=== PATIENT | male | born 1950 | race Caucasian/White ===

== ENCOUNTER 2020-09-03 19:39 | Inpatient (IN) | payer MEDICARE ==
[~2020-09-03] VITALS: Ht 177.8 cm; Wt 82.6 kg
[2020-09-03] MEDS ORDERED: ONDANSETRON 4 MG/2 ML VIAL ONE (19:58)
[2020-09-03] MEDS ORDERED: ACETAMINOPHEN ES 500 MG TABLET ONE (19:58)
[2020-09-03] MEDS ORDERED: IV NORMAL SALINE 1000 ML BAG IV ONE ×2 (20:00→21:30)
[2020-09-03] MEDS ORDERED: CEFTRIAXONE 1 G in IV DEXTROSE 5% 50 ML IV ONE (20:00)
[2020-09-03] MEDS ORDERED: ACETAMINOPHEN ES 500 MG TABLET PO ONE (20:00)
[2020-09-03] MEDS ORDERED: ONDANSETRON 4 MG/2 ML VIAL IV ONE (20:00)
[2020-09-03] MEDS ORDERED: [UNRECOGNIZED DRUG - REMARK] (20:03)
--- NOTE | 2020-09-03 20:12 | NUR ---
ER aware of patient BP @ 72/41
[2020-09-03 20:16] LABS: BASOPHILS % (AUTO) 0.1 % (0.0-2.0); MEAN CORPUSCULAR VOLUME 93.7 fL (73.0-96.2); MONOCYTES # (AUTO) 0.1 K/uL (2.0-10.0); NEUTROPHILS # (AUTO) 5.4 K/uL (1.8-8.9); RED BLOOD CELL COUNT(AUTO) 4.53 MIL/uL (4.06-5.63)
[2020-09-03 20:20] LABS: LYMPHOCYTES % (AUTO) 4.1 % (20.5-51.5); MEAN CORPUSCULAR HGB CONC 34 g/dL (32.5-36.3)
[2020-09-03 20:21] LABS: HEMATOCRIT 42.4 % (36.7-47.1); HEMOGLOBIN 14.3 g/dL (12.5-16.3); PLATELET COUNT (AUTO) 96 K/uL (152-348); WHITE BLOOD COUNT (AUTO) 5.8 K/uL (3.6-10.2)
[2020-09-03] MEDS ORDERED: CEFTRIAXONE 1 G VIAL ONE (20:21)
[2020-09-03 20:22] LABS: EOSINOPHILS % (AUTO) 0.1 % (0.0-7.0); LYMPHOCYTES # (AUTO) 0.3 K/uL (20.0-40.0); MEAN CORPUSCULAR HEMOGLOBIN 31.6 uug (23.8-33.4); MONOCYTES % (AUTO) 1.6 % (0.0-11.0); NEUTROPHILS % (AUTO) 93.6 % (38.5-71.5)
[2020-09-03 20:47] LABS: BILIRUBIN,DIRECT 5.2 mg/dL (0.0-0.2); BILIRUBIN,TOTAL 6.3 mg/dL (0.2-1.0); CREATININE 2.6 mg/dL (0.6-1.3)
[2020-09-03 20:48] LABS: TOTAL PROTEIN, SERUM 6.6 g/dL (6.4-8.2)
[2020-09-03 20:49] LABS: POTASSIUM 2.5 mmol/L (3.5-5.1)
--- NOTE | 2020-09-03 20:49 | NUR ---
Patient in bed, no acute distress noted. VSS
[2020-09-03] MEDS ORDERED: ENOXAPARIN SODIUM 80 MG/0.8 ML DISP.SYRIN SQ ONE ×2 (21:30→21:38)
--- NOTE | 2020-09-03 21:46 | NUR ---
SOLO QIU at bedside for patient update.
[2020-09-03] MEDS ORDERED: POTASSIUM CHLORIDE 20 MEQ TAB.PRT.SR PO ONE ×2 (22:00→23:30)
[2020-09-03] MEDS ORDERED: POTASSIUM CHLORIDE 20 MEQ TAB.PRT.SR ONE ×2 (22:01→23:54)
--- NOTE | 2020-09-03 22:23 | NUR ---
Panel call placed to [employer], Dr Castellanos on phone with ER MD Jensen.
--- NOTE | 2020-09-03 22:26 | NUR ---
Pt. admitted to CCU , under care of Dr. Castellanos Belongs List completed
--- NOTE | 2020-09-03 22:37 | NUR ---
Patient placed on simple mask @ 10lpm per ER instruction
[2020-09-03 22:50] LABS: BAND % (MANUAL) 22 % (0-10); LYMPHOCYTES % (MANUAL) 7 % (20-40); MONOCYTES % (MANUAL) 7 % (2-10); NEUTROPHILS % (MANUAL) 64 % (42-75)
--- NOTE | 2020-09-03 23:12 | NUR ---
Awaiting call back from Dr Castellanos.
--- NOTE | 2020-09-03 23:15 | NUR ---
SOLO QIU on phone with Emanuel
[2020-09-03] MEDS ORDERED: NOREPINEPHRINE BITARTRATE 4 MG/4 ML VIAL IV ONE (23:25)
[2020-09-03] MEDS ORDERED: ACETAMINOPHEN 325 MG TABLET PO PRN (23:30)
[2020-09-03] MEDS ORDERED: CEFTRIAXONE 1 G in IV DEXTROSE 5% 50 ML IV SCH (23:30)
[2020-09-03] MEDS ORDERED: NOREPINEPHRINE BITARTRATE 8 MG in IV NORMAL SALINE 242 ML IV PRN (23:30)
[2020-09-03] MEDS ORDERED: Z GUARD REMEDY PASTE 57 GM TUBE TOP PRN (23:30)
[2020-09-03] MEDS ORDERED: IV LACTATED RINGERS SOLUTION 1,000 ML IV ONE (23:30)
[2020-09-03] MEDS ORDERED: ONDANSETRON 4 MG/2 ML VIAL IV PRN (23:30)
[2020-09-03] MEDS ORDERED: HYDROCODONE/APAP 5-325MG TABLET PO PRN (23:30)
[2020-09-03] MEDS ORDERED: MAGNESIUM HYDROXIDE 30 ML LIQUID UDC PO PRN (23:30)
[2020-09-03] MEDS ORDERED: CEFTRIAXONE /D5W 50ML IVPB **ER PYXIS IV ONE (23:54)
--- NOTE | 2020-09-04 00:11 | NUR ---
Patient in bed, no acute distress noted. Resting comfortably at this time.
--- NOTE | 2020-09-04 00:17 | NUR ---
Rate change on Levo to 0.3mcg/kg/min per ER MD instruction. Patient BP is 84/53 at this time.
[2020-09-04] MEDS ORDERED: NOREPINEPHRINE BITARTRATE 4 MG/4 ML VIAL IV ONE ×3 (04:37→16:46)
--- NOTE | 2020-09-04 04:47 | NUR ---
Patient in bed, no acute distress noted. VSS
[2020-09-04 06:59] LABS: BASOPHILS % (AUTO) 0.1 % (0.0-2.0); EOSINOPHILS # (AUTO) 0.1 K/uL (0.0-0.7); EOSINOPHILS % (AUTO) 0.2 % (0.0-7.0); HEMATOCRIT 39.4 % (36.7-47.1); HEMOGLOBIN 13.3 g/dL (12.5-16.3); LYMPHOCYTES # (AUTO) 0.5 K/uL (20.0-40.0); LYMPHOCYTES % (AUTO) 1.9 % (20.5-51.5); MEAN CORPUSCULAR HEMOGLOBIN 31.8 uug (23.8-33.4); MEAN CORPUSCULAR HGB CONC 34 g/dL (32.5-36.3); MEAN CORPUSCULAR VOLUME 94.1 fL (73.0-96.2); MONOCYTES # (AUTO) 0.7 K/uL (2.0-10.0); NEUTROPHILS # (AUTO) 24.1 K/uL (1.8-8.9); NEUTROPHILS % (AUTO) 94.8 % (38.5-71.5); PLATELET COUNT (AUTO) 111 K/uL (152-348); RED BLOOD CELL COUNT(AUTO) 4.19 MIL/uL (4.06-5.63); WHITE BLOOD COUNT (AUTO) 25.4 K/uL (3.6-10.2)
--- NOTE | 2020-09-04 07:06 | NUR ---
Report to Kojo LONDON
--- NOTE | 2020-09-04 07:10 | NUR ---
recieved pt in bed, resting, no sign of distress. pt on levophed drip on 0.3mcg/kg/min, bp 106/69.
[2020-09-04 07:17] LABS: THYROID STIMULATING HORMONE 0.881 mIU/mL (0.358-3.740)
[2020-09-04] MEDS: PANTOPRAZOLE SODIUM 40 MG TABLET.DR PO SCH (07:30)
[2020-09-04] MEDS ORDERED: PANTOPRAZOLE SODIUM 40 MG TABLET.DR PO ONE (07:33)
[2020-09-04 07:44] LABS: CREATININE 3.9 mg/dL (0.6-1.3); PHOSPHOROUS 4.9 mg/dL (2.5-4.9); POTASSIUM 3.9 mmol/L (3.5-5.1)
[2020-09-04] MEDS ORDERED: PIPERACILLIN SODIUM/TAZOBACTAM 3.375 G in IV DEXTROSE 5% 50 ML IV ONE (07:45)
[2020-09-04] MEDS ORDERED: VANCOMYCIN IV 1,000 MG in IV DEXTROSE 5% 250 ML IV ONE (07:45)
[2020-09-04] MEDS ORDERED: VANCOMYCIN IV 200 ML ONE (07:49)
[2020-09-04] MEDS ORDERED: PIPERACILLIN/TAZOBACTAM/D5W 50 ML IV ONE (07:49)
--- NOTE | 2020-09-04 08:40 | NUR ---
CALLED TARUN INTERIANO TO INFORM HER THAT THE PT IS STILL IN ER.
--- NOTE | 2020-09-04 09:00 | NUR ---
[facility] HAD SOME. PT SAYS THAT HAS NO APETITE.
[2020-09-04] MEDS ORDERED: ENOXAPARIN SODIUM 80 MG/0.8 ML DISP.SYRIN SQ ONE (11:05)
[2020-09-04] MEDS ORDERED: PIPERACILLIN SODIUM/TAZOBACTAM 3.375 G in IV DEXTROSE 5% 50 ML IV SCH (12:00)
--- NOTE | 2020-09-04 12:14 | NUR ---
spoke with both Dr. Disla, GI and Dr Valencia, surgeon. Dr. Disla is arranging for emergent ERCP
--- NOTE | 2020-09-04 12:23 | NUR ---
reno from surgery called and said that Dr. soni scheduled ERCP for 1800. elo lyon notified.
--- NOTE | 2020-09-04 12:32 | NUR ---
pt on the phone talking to juan ramon lu.
[2020-09-04 12:48] LABS: LYMPHOCYTES % (MANUAL) 12 % (20-40); MONOCYTES % (MANUAL) 2 % (2-10); NEUTROPHILS % (MANUAL) 86 % (42-75)
--- NOTE | 2020-09-04 13:34 | NUR ---
RECEIVED REPORT FROM EBCCA RN, PT AWAITING FOR TRANSFER TO SURG. PT POSITIONED FOR COMFORT.
--- NOTE | 2020-09-04 14:10 | NUR ---
ASYA BARRIOS AT BEDSIDE.
[2020-09-04] MEDS: PIPERACILLIN/TAZO 2.25 G in IV DEXTROSE 5% 50 ML IV SCH (16:26)
[2020-09-04] MEDS ORDERED: PIPERACILLIN/TAZOBACTAM/D5W 50 ML ONE (16:26)
[2020-09-04] MEDS ORDERED: IOPAMIDOL 15 ML VIAL IT ONE (17:12)
--- NOTE | 2020-09-04 17:35 | NUR ---
REPEAT EKG DONE, COPY OF CHART/ORIGINAL CONSENT TO OR NURSES. REPORT TO ATUL LONDON. PT TO GO TO 3RD FLOOR AFTER SURG.
[2020-09-04] MEDS ORDERED: IOHEXOL 300MG/ML 100 ML INFUS..BTL IV ONE (18:14)
[2020-09-04] MEDS ORDERED: INDOMETHACIN 50 MG SUPP.RECT RC ONE (18:14)
[2020-09-04] MEDS ORDERED: FENTANYL CITRATE 100 MCG/2 ML AMPUL ONE (18:23)
[2020-09-04] MEDS ORDERED: SEVOFLURANE 250 ML BOTTLE IH ONE (19:20)
[2020-09-04] MEDS ORDERED: EPHEDRINE SULFATE 50 MG/ML AMPUL IM ONE (19:20)
[2020-09-04] MEDS ORDERED: IV NORMAL SALINE 1000 ML BAG IV ONE (19:20)
[2020-09-04] MEDS ORDERED: PROPOFOL 200 MG/20 ML BOTTLE IV ONE (19:20)
[2020-09-04] MEDS ORDERED: LIDOCAINE-MPF 2% 5 ML VIAL IJ ONE (19:20)
[2020-09-04] MEDS ORDERED: SUCCINYLCHOLINE CHLORIDE 200 MG/10 ML VIAL IV ONE (19:20)
[2020-09-04] MEDS ORDERED: ONDANSETRON 4 MG/2 ML VIAL IV ONE (19:20)
[2020-09-04] MEDS ORDERED: METOCLOPRAMIDE HCL 10 MG/2 ML VIAL IV ONE (19:20)
[2020-09-04 21:00] VITALS: BP 117/69
[2020-09-04] MEDS ORDERED: ENOXAPARIN SODIUM 80 MG/0.8 ML DISP.SYRIN SQ SCH (21:00)
--- NOTE | 2020-09-04 21:00 | NUR ---
belongings received only silver ring and pants
--- NOTE | 2020-09-04 21:15 | NUR ---
received report and patient from Radha , patient is awake oriented , able to follow command , on 100 NRB, saturating 97 % , Temp , 98.7, HR 105 , 117 / 69 , 27 . LEVOPHED IS OFF , IV intact . continet , denies pain or vomiting
[2020-09-04 22:00] VITALS: BP 104/69
[2020-09-04] MEDS: IV NS 1000 ML 1,000 ML IV PRN (22:30)
[2020-09-04 23:00] VITALS: BP 108/70
[2020-09-05] VITALS (22 sets, daily range): BP systolic 98–147; BP diastolic 44–89
--- NOTE | 2020-09-05 | NUR ---
received report patient is blood culture is gram (-) rods , reported to physician , patient is on antibiotics of zosyn , vanco given in ER , awake , able to follow command no fever , denies pain and vomiting ,
[2020-09-05] MEDS ORDERED: PIPERACILLIN/TAZOBACTAM/D5W 50 ML ONE (02:10)
[2020-09-05] MEDS: PIPERACILLIN/TAZO 2.25 G in IV DEXTROSE 5% 50 ML IV SCH ×2 (02:14→09:39)
[2020-09-05] MEDS: IV NS 1000 ML 1,000 ML IV PRN ×3 (04:06→23:30)
[2020-09-05 05:50] LABS: EOSINOPHILS # (AUTO) 0.3 K/uL (0.0-0.7); EOSINOPHILS % (AUTO) 1.8 % (0.0-7.0); HEMATOCRIT 36.2 % (36.7-47.1); HEMOGLOBIN 12.4 g/dL (12.5-16.3); LYMPHOCYTES # (AUTO) 0.7 K/uL (20.0-40.0); LYMPHOCYTES % (AUTO) 3.9 % (20.5-51.5); MEAN CORPUSCULAR HEMOGLOBIN 31.7 uug (23.8-33.4); MEAN CORPUSCULAR HGB CONC 34 g/dL (32.5-36.3); MEAN CORPUSCULAR VOLUME 92.6 fL (73.0-96.2); MONOCYTES # (AUTO) 0.4 K/uL (2.0-10.0); MONOCYTES % (AUTO) 2.3 % (0.0-11.0); NEUTROPHILS # (AUTO) 17.3 K/uL (1.8-8.9); PLATELET COUNT (AUTO) 56 K/uL (152-348); RED BLOOD CELL COUNT(AUTO) 3.91 MIL/uL (4.06-5.63); WHITE BLOOD COUNT (AUTO) 18.9 K/uL (3.6-10.2)
[2020-09-05 06:00] LABS: CREATININE 5.9 mg/dL (0.6-1.3); POTASSIUM 4.7 mmol/L (3.5-5.1)
[2020-09-05 06:08] LABS: BILIRUBIN,DIRECT 4.6 mg/dL (0.0-0.2); BILIRUBIN,TOTAL 5.1 mg/dL (0.2-1.0); TOTAL PROTEIN, SERUM 5.4 g/dL (6.4-8.2); VANCOMYCIN,RANDOM 11.5 ug/mL (18.0-26.0)
--- NOTE | 2020-09-05 06:15 | NUR ---
unable to urinate . bladder scan done 267 ml , assisted patient standing to try to urinate , , unable to , called the doctor business analysis professional , mike ta waiting for call back , patient is awake orientd , on 100 nrb % , no levophed started since patient received from recovery , hr 100 . bp 101 / 70 95 % , rr 18 , no fever no vomiting
--- NOTE | 2020-09-05 06:45 | NUR ---
lynn inserted , successfully with 1 attempt , urine draining well , urine culture sent
[2020-09-05] MEDS: PANTOPRAZOLE SODIUM 40 MG TABLET.DR PO SCH (07:00)
[2020-09-05] MEDS ORDERED: AMLO10TA4 PO (07:22)
[2020-09-05] MEDS ORDERED: VANCOMYCIN IV 1,000 MG in IV DEXTROSE 5% 250 ML IV ONE ×2 (08:00→10:00)
[2020-09-05 15:04] LABS: *BILIRUBIN,URIN 2+ (NEGATIVE); *BLOOD, URINE 3+ (NEGATIVE); *CLARITY,URINE TURBID (CLEAR); *COLOR,URINE DARK YELLOW (YELLOW); *KETONES,URINE NEGATIVE (NEGATIVE); LEUKOCYTE ESTERASE ,URINE NEGATIVE (NEGATIVE); NITRITE, URINE NEGATIVE (NEGATIVE); PH,URINE 5.5 (5.0-8.0); UGLUCOSE NEGATIVE (NEGATIVE)
[2020-09-05 15:25] LABS: *CREATININE,URINE 86.4 mg/dL (30-125); *URINE TOTAL PROTEIN RANDOM 255.4 mg/dL (<150/24HR)
[2020-09-05 17:49] LABS: BAND % (MANUAL) 11 % (0-10); LYMPHOCYTES % (MANUAL) 11 % (20-40); NEUTROPHILS % (MANUAL) 76 % (42-75)
[2020-09-05 17:50] LABS: MONOCYTES % (MANUAL) 1 % (2-10); MYELOCYTES % 1 % (0-0)
[2020-09-05] MEDS: MEROPENEM 500 MG in IV NORMAL SALINE 50 ML IV SCH (18:16)
[2020-09-05 18:32] LABS: CREATININE 6.7 mg/dL (0.6-1.3); POTASSIUM 4.1 mmol/L (3.5-5.1)
--- NOTE | 2020-09-05 19:17 | NUR ---
1300pm: Dr Castellanos came to CCU and was notified (face to face) re: please contact patient 's spouse regarding medical plan of care 1630pm: Frequent calls received from patient's spouse. Updated accordingly. 1800pm: NPO maintained. Comfort and safety measures done. Patient denies any pains throughout the shift.
--- NOTE | 2020-09-05 20:00 | NUR ---
RECEIVED PT ALERT & ORIENTED X3, FOLLOWS TO COMMAND. ON O2 @ 100% NRM W/ O2 SAT OF 96%. ON IVF D51/2 W/ 30MEQ KCL @ 125CC/HR ON LEFT HAND. MATHIS CATH INTACT TO GRAVITY DRAINAGE BAG W/ CLEAR SALMA URINE. REPOSITIONED HIMSELF FOR COMFORTS. NOT IN ANY DISTRESS.
[2020-09-05] MEDS ORDERED: ENOXAPARIN SODIUM 80 MG/0.8 ML DISP.SYRIN SQ SCH (21:00)
[2020-09-05 21:10] LABS: COARSE GRANULAR CASTS,URINE FEW /LPF
[2020-09-05 21:11] LABS: URINE AMORPHOUS URATE FEW /HPF
[2020-09-05 21:12] LABS: BACTERIA,URINE FEW /HPF (NONE SEEN); SQUAMOUS EPITHELIAL CELL,UR FEW /HPF (NONE SEEN); WBC,URINE 0-3 /HPF (0-3)
--- NOTE | 2020-09-05 23:00 | NUR ---
HAD A BOWEL MOVEMENT. HS CARE DONE.
[2020-09-06] VITALS (17 sets, daily range): BP systolic 100–143; BP diastolic 69–92
[2020-09-06] MEDS: MEROPENEM 500 MG in IV NORMAL SALINE 50 ML IV SCH (05:52)
[2020-09-06 06:00] LABS: BASOPHILS % (AUTO) 0.1 % (0.0-2.0); EOSINOPHILS % (AUTO) 0.2 % (0.0-7.0); HEMATOCRIT 39.7 % (36.7-47.1); HEMOGLOBIN 13.4 g/dL (12.5-16.3); LYMPHOCYTES # (AUTO) 0.7 K/uL (20.0-40.0); LYMPHOCYTES % (AUTO) 4.9 % (20.5-51.5); MEAN CORPUSCULAR HEMOGLOBIN 31.8 uug (23.8-33.4); MEAN CORPUSCULAR HGB CONC 34 g/dL (32.5-36.3); MEAN CORPUSCULAR VOLUME 94.4 fL (73.0-96.2); MONOCYTES # (AUTO) 0.4 K/uL (2.0-10.0); MONOCYTES % (AUTO) 2.4 % (0.0-11.0); NEUTROPHILS # (AUTO) 13.7 K/uL (1.8-8.9); NEUTROPHILS % (AUTO) 92.4 % (38.5-71.5); PLATELET COUNT (AUTO) 52 K/uL (152-348); RED BLOOD CELL COUNT(AUTO) 4.21 MIL/uL (4.06-5.63); WHITE BLOOD COUNT (AUTO) 14.8 K/uL (3.6-10.2)
--- NOTE | 2020-09-06 06:00 | NUR ---
V/S STABLE. O2 SAT ADEQ. SLEPT WELL.
[2020-09-06 06:11] LABS: BILIRUBIN,TOTAL 2.1 mg/dL (0.2-1.0); MAGNESIUM 2.7 mg/dL (1.8-2.4); PHOSPHOROUS 3.4 mg/dL (2.5-4.9); POTASSIUM 4.3 mmol/L (3.5-5.1); TOTAL PROTEIN, SERUM 5.5 g/dL (6.4-8.2)
[2020-09-06 06:16] LABS: CREATININE 7.5 mg/dL (0.6-1.3)
[2020-09-06] MEDS: PANTOPRAZOLE SODIUM 40 MG TABLET.DR PO SCH (07:08)
[2020-09-06] MEDS: IV NS 1000 ML 1,000 ML IV PRN (08:25)
--- NOTE | 2020-09-06 09:24 | NUR ---
US tech at the bedside for 2D Echocardiogram.
[2020-09-06] MEDS ORDERED: ALBUTEROL SULFATE 2.5 MG/3 ML NEBU NEB PRN (11:15)
--- NOTE | 2020-09-06 13:31 | NUR ---
Ambulance here to [facility] picker pt for MRCP scan. Full SBAR report given to ambulance. Pt stable and nad noted upon leaving the unit.
--- NOTE | 2020-09-06 14:00 | NUR ---
doctor chiloma in the unit patient can be down graded to tele.
--- NOTE | 2020-09-06 15:06 | NUR ---
PATIENT BROUGHT BACK FROM [facility]. RAY GAVE REPORT FROM TRANSPORT TEAM. PATIENT IS STABLE WAS ABLE TO TRANSFER FROM [facility] TO BED INDEPENDENTLY.
[2020-09-06 17:11] LABS: BAND % (MANUAL) 2 % (0-10); LYMPHOCYTES % (MANUAL) 3 % (20-40); MONOCYTES % (MANUAL) 1 % (2-10); MYELOCYTES % 1 % (0-0); NEUTROPHILS % (MANUAL) 93 % (42-75)
--- NOTE | 2020-09-06 19:00 | NUR ---
Patient received from VANDA MCGUIRE. Stable condition. Safety measures in place. Will monitor and assess. Addendum: 09/06/20 at 2311 by MARIBEL CARMEN RN Wrong Patient
--- NOTE | 2020-09-06 20:15 | NUR ---
Report given to Neil LONDONdistrict medical examiner nurse from the third floor. Patient to be transferred to room 306.
--- NOTE | 2020-09-06 20:55 | NUR ---
Patient transferred to third floor telemetry room 305 via wheelchair. Patient A/Ox4 on transfer, no complaints of SOB or distress. No complaints of pain. Peripheral IV stopped and disconnected and left AC peripheral IV flushed and locked for safety during transfer. All belongings accompanied patient to his new room.
--- NOTE | 2020-09-06 21:00 | NUR ---
Patient received from CCU nurse. VSS. Stable condition. Safety measures in place. Will monitor and assess.
[2020-09-07 01:06] VITALS: BP 111/61
[2020-09-07] MEDS: MEROPENEM 500 MG in IV NORMAL SALINE 50 ML IV SCH (05:58)
[2020-09-07] MEDS: PANTOPRAZOLE SODIUM 40 MG TABLET.DR PO SCH (05:59)
[2020-09-07 06:06] VITALS: BP 119/83
--- NOTE | 2020-09-07 06:39 | NUR ---
Patient handed off to AM nurse. VSS. Stable condition. No pain. Safety measures in place. Non-remarkable findings throughout the night. O2 at 4L via NC. No SOB. Will endorse all pertinent information to AM nurse.
[2020-09-07 06:47] LABS: BASOPHILS % (AUTO) 0.1 % (0.0-2.0); EOSINOPHILS # (AUTO) 0.1 K/uL (0.0-0.7); EOSINOPHILS % (AUTO) 0.7 % (0.0-7.0); HEMATOCRIT 40.5 % (36.7-47.1); HEMOGLOBIN 13.6 g/dL (12.5-16.3); LYMPHOCYTES # (AUTO) 0.6 K/uL (20.0-40.0); LYMPHOCYTES % (AUTO) 5.2 % (20.5-51.5); MEAN CORPUSCULAR HEMOGLOBIN 31.5 uug (23.8-33.4); MEAN CORPUSCULAR HGB CONC 34 g/dL (32.5-36.3); MONOCYTES # (AUTO) 0.5 K/uL (2.0-10.0); MONOCYTES % (AUTO) 4.3 % (0.0-11.0); NEUTROPHILS # (AUTO) 10.5 K/uL (1.8-8.9); NEUTROPHILS % (AUTO) 89.7 % (38.5-71.5); PLATELET COUNT (AUTO) 57 K/uL (152-348); RED BLOOD CELL COUNT(AUTO) 4.31 MIL/uL (4.06-5.63); WHITE BLOOD COUNT (AUTO) 11.7 K/uL (3.6-10.2)
[2020-09-07 07:42] LABS: MAGNESIUM 3.1 mg/dL (1.8-2.4); PHOSPHOROUS 4.7 mg/dL (2.5-4.9)
[2020-09-07 07:51] LABS: BILIRUBIN,TOTAL 1.3 mg/dL (0.2-1.0); POTASSIUM 4.6 mmol/L (3.5-5.1); TOTAL PROTEIN, SERUM 5.1 g/dL (6.4-8.2)
--- NOTE | 2020-09-07 07:58 | NUR ---
Awake, alert, oriented x 4, on moderate high back rest. O2 at 4L/NC. IVF infusing. Discussed plan of care
[2020-09-07] MEDS ORDERED: VANCOMYCIN IV 1,250 MG in IV DEXTROSE 5% 250 ML IV ONE (09:00)
[2020-09-07 09:21] LABS: COMPLEMENT, C3 SERUM 104 mg/dL (82-167); COMPLEMENT, C4 SERUM 25 mg/dL (12-38)
[2020-09-07 09:24] LABS: ABG BASE EXCESS -11.1 mmol/L; ABG PCO2 25.5 mmHg (35.0-45.0); ABG PH 7.325 (7.350-7.450); ABG PO2 111.7 mmHg (75.0-100.0); ABG SITE LEFT RADIAL; ABG TOTAL HEMOGLOBIN 14.2 G/dL (13.5-18.0); COHb 1.1 % (0.5-1.5); MetHb 0.3 % (0.0-1.5); O2Hb 96.2 % (94.0-97.0); VENT MODE Nasal Cannula
[2020-09-07 11:08] LABS: CREATININE 8.7 mg/dL (0.6-1.3)
--- NOTE | 2020-09-07 11:40 | NUR ---
Informed Dr. Castlelanos regarding critical lab results of BUN 117, Crea 8.7 and said to inform nephro. Notified Dr. Strauss about BUN, Crea results and per MD he will arrange for hemodialysis and will speak to family. Patient's contact information provided to MD. Patient remains alert, oriented x 4, not in any form of distress. He denies any pain or discomfort. Maintained patient on NPO. Will continue to monitor.
[2020-09-07 12:02] VITALS: BP 139/85
[2020-09-07 16:00] VITALS: BP 143/87
--- NOTE | 2020-09-07 17:00 | NUR ---
Patient picked up for NM Hida GB vasc flow which patient consented to. No complain of any pain or discomfort.
[2020-09-07] MEDS: IV NS 1000 ML 1,000 ML IV PRN (18:10)
--- NOTE | 2020-09-07 20:45 | NUR ---
AWAKE ALERT AND ORIENTED REMAIN ON NPO ORDERED PATIENT REEDUCATED THAT HE IS NPO AND EXPRESSED UNDERSTANDING ON O2 AT 2L/M WITH NO SOB AT THIS TIME IVF REMAINS IN PROGRESS WITH NO S/S OF INFILTERATION ON SITE HIDA SCAN COMPLETED ORDERED WILL CONTINUE TO OBSERVE.
[2020-09-07 21:03] VITALS: BP 142/84
[2020-09-08 00:14] VITALS: BP 127/69
[2020-09-08 02:09] LABS: HEPATITIS B SURFACE AB Non Reactive (.); HEPATITIS B SURFACE AG Negative (Negative)
[2020-09-08 04:40] VITALS: BP 142/54
--- NOTE | 2020-09-08 04:59 | NUR ---
Pt received from nurse. VSS. Safety measures in place. Needs attended too. On 4L O2 via NC. Will be kept NPO for ERCP. Will monitor and assess.
[2020-09-08] MEDS: MEROPENEM 500 MG in IV NORMAL SALINE 50 ML IV SCH (05:30)
[2020-09-08] MEDS: PANTOPRAZOLE SODIUM 40 MG TABLET.DR PO SCH (06:35)
--- NOTE | 2020-09-08 06:56 | NUR ---
Patient handed off to AM nurse. All pertinent information provided. VSS. Stable condition. No pain/distress. Patient kept NPO throughout shift. Pre-op checklist added to interventions. Will endorse to AM nurse.
[2020-09-08 07:35] LABS: BASOPHILS % (AUTO) 0.1 % (0.0-2.0); EOSINOPHILS # (AUTO) 0.1 K/uL (0.0-0.7); EOSINOPHILS % (AUTO) 0.9 % (0.0-7.0); HEMATOCRIT 42.4 % (36.7-47.1); HEMOGLOBIN 14.2 g/dL (12.5-16.3); LYMPHOCYTES # (AUTO) 0.6 K/uL (20.0-40.0); LYMPHOCYTES % (AUTO) 4.5 % (20.5-51.5); MEAN CORPUSCULAR HEMOGLOBIN 31.6 uug (23.8-33.4); MEAN CORPUSCULAR HGB CONC 33 g/dL (32.5-36.3); MEAN CORPUSCULAR VOLUME 94.5 fL (73.0-96.2); MONOCYTES # (AUTO) 0.7 K/uL (2.0-10.0); NEUTROPHILS # (AUTO) 11.9 K/uL (1.8-8.9); NEUTROPHILS % (AUTO) 89.5 % (38.5-71.5); PLATELET COUNT (AUTO) 64 K/uL (152-348); RED BLOOD CELL COUNT(AUTO) 4.49 MIL/uL (4.06-5.63); WHITE BLOOD COUNT (AUTO) 13.2 K/uL (3.6-10.2)
[2020-09-08 07:37] LABS: BILIRUBIN,DIRECT 0.9 mg/dL (0.0-0.2); BILIRUBIN,TOTAL 1.1 mg/dL (0.2-1.0); MAGNESIUM 3.3 mg/dL (1.8-2.4); POTASSIUM 4.9 mmol/L (3.5-5.1); TOTAL PROTEIN, SERUM 5.3 g/dL (6.4-8.2)
[2020-09-08 08:00] VITALS: BP 145/84
[2020-09-08] MEDS ORDERED: BUPIVACAINE/EPI PF 0.25% 30 ML VIAL ONE (10:21)
[2020-09-08] MEDS ORDERED: BUPIVACAINE 0.25% 30 ML VIAL ONE (10:21)
[2020-09-08 11:34] LABS: CREATININE 9.3 mg/dL (0.6-1.3)
--- NOTE | 2020-09-08 11:39 | NUR ---
Lab called to report critical lab value, BUN is 130 and creatinine is 9.3. Labs reported by Rosa Maria from lab. Made ISSAC Keating aware. Awaiting orders. Will continue to monitor
[2020-09-08 11:42] VITALS: BP 147/79
--- NOTE | 2020-09-08 14:00 | NUR ---
Patient picked up off the floor for Lap Shara. Patient is stable, will continue monitoring when patient is still on the floor.
[2020-09-08] MEDS ORDERED: THROMBIN (BOVINE) 5,000 UNITS VIAL ONE (15:30)
[2020-09-08 16:48] LABS: BASOPHILS % (AUTO) 0.1 % (0.0-2.0); EOSINOPHILS # (AUTO) 0.1 K/uL (0.0-0.7); EOSINOPHILS % (AUTO) 0.5 % (0.0-7.0); HEMATOCRIT 44.9 % (36.7-47.1); HEMOGLOBIN 14.7 g/dL (12.5-16.3); LYMPHOCYTES # (AUTO) 0.6 K/uL (20.0-40.0); LYMPHOCYTES % (AUTO) 3.8 % (20.5-51.5); MEAN CORPUSCULAR HEMOGLOBIN 31.2 uug (23.8-33.4); MEAN CORPUSCULAR HGB CONC 33 g/dL (32.5-36.3); MEAN CORPUSCULAR VOLUME 95.4 fL (73.0-96.2); MONOCYTES # (AUTO) 0.2 K/uL (2.0-10.0); MONOCYTES % (AUTO) 1.2 % (0.0-11.0); NEUTROPHILS # (AUTO) 15.2 K/uL (1.8-8.9); NEUTROPHILS % (AUTO) 94.4 % (38.5-71.5); PLATELET COUNT (AUTO) 80 K/uL (152-348); WHITE BLOOD COUNT (AUTO) 16.1 K/uL (3.6-10.2)
[2020-09-08 17:05] VITALS: BP 141/79
[2020-09-08] MEDS: IV NS 1000 ML 1,000 ML IV PRN (17:24)
--- NOTE | 2020-09-08 18:00 | NUR ---
Patient is back on the floor, no sign of distress noted. Patient is stable. Orders to change diet to clear liquids and order CBC and CMP for AM. Patient's JULIANE mullins output was 210 in recovery and Kennedy 100ccs. Will continue to monitor.
[2020-09-08] MEDS ORDERED: MORPHINE SULFATE 2 MG/1 ML DISP.SYRIN IV PRN (18:30)
--- NOTE | 2020-09-08 19:47 | NUR ---
JULIANE output is 100ccs. Will endorse to the oncoming nurse.
[2020-09-08 20:00] VITALS: BP 146/82
--- NOTE | 2020-09-08 21:00 | NUR ---
RRECEIVED PATIENT IN BED AWAKE ALERT AND ORIENTED DENIES PAIN OR DISCOMFORTS AT THIS TIME ON O2 AT 2L/M BY NASAL CANULA WITH NO SOB AT THIS TIME TELE HAS BEEN SR.ABDOMEN WITH SCOPE SITES WITH JULIANE DRAINING SEROUS SANGIONOUS LIQUID HE HAS MATHIS CATH TO GRAVITY DRAINGE OF YELLOW URINE SAMPLE COLLECTED AND SENT OT THE LAB ORDERED.REMAIN ON IVF WITH NO S/S OF INFILTERATION ON SITE POST OP TEACHING IN PROGRESS PATIENT DENIES PAIN OR DISCOMFORTS AT THIS TIME MADE COMFORTABLE WILL CONTINUE TO OBSERVE.
[2020-09-08 23:27] LABS: *BILIRUBIN,URIN NEGATIVE (NEGATIVE); *BLOOD, URINE 2+ (NEGATIVE); *COLOR,URINE YELLOW (YELLOW); *KETONES,URINE NEGATIVE (NEGATIVE); *UROBILINOGEN,URINE 0.2 E.U./dl (NORMAL); LEUKOCYTE ESTERASE ,URINE NEGATIVE (NEGATIVE); NITRITE, URINE NEGATIVE (NEGATIVE); PH,URINE 5.5 (5.0-8.0); UGLUCOSE NEGATIVE (NEGATIVE)
[2020-09-09 00:45] LABS: *CREATININE,URINE 84.1 mg/dL (30-125); *URINE TOTAL PROTEIN RANDOM 29.1 mg/dL (<150/24HR)
[2020-09-09] MEDS: IV NS 1000 ML 1,000 ML IV PRN ×3 (01:37→22:08)
[2020-09-09 01:54] LABS: RBC,URINE 20-50 /HPF (0-3)
[2020-09-09 01:55] LABS: BACTERIA,URINE NONE SEEN /HPF (NONE SEEN); SQUAMOUS EPITHELIAL CELL,UR FEW /HPF (NONE SEEN)
[2020-09-09 04:44] VITALS: BP 152/85
[2020-09-09 04:51] LABS: BAND % (MANUAL) 5 % (0-10); LYMPHOCYTES % (MANUAL) 5 % (20-40); MONOCYTES % (MANUAL) 6 % (2-10); NEUTROPHILS % (MANUAL) 84 % (42-75)
[2020-09-09] MEDS: MEROPENEM 500 MG in IV NORMAL SALINE 50 ML IV SCH (05:07)
--- NOTE | 2020-09-09 05:18 | NUR ---
PATIENT TOLERATED FULL LIQUIDS DIET ORDERED DENIES ABDOMINAL PAIN NAUSEA OR VOMITING HE HAS AN ORDER FOR ADVANCE DIET TOLERATED BY DR ALDRICH SO DIET ADVANCED TO FULL LIQUIDS AT THIS TIME.
[2020-09-09 05:32] LABS: *CLARITY,URINE CLOUDY (CLEAR)
[2020-09-09] MEDS: PANTOPRAZOLE SODIUM 40 MG TABLET.DR PO SCH (05:52)
--- NOTE | 2020-09-09 06:13 | NUR ---
JULIANE SITE SATURATED WITH SEROUS SANGIONOUS DRAINGE DRESSING CHANGED WITH ABDOMINAL PAD AND GAUZE WITH PAPER TAPE TOTAL JULIANE OUTPUT THIS SHIFT IS 150 PATIENT GIVEN AND INSTRUCTED ON INCENTIVE SPIROMETER ENCOURAGED TO DEEP BREATH AND TO REQUEST FOR PAIN MEDICATIONS STATED NOT IN PAIN AT THIS TIME AND EXPRESSED UNDERSTANDING OF POST OP INSTRUCTIONS.
[2020-09-09 07:20] LABS: BASOPHILS % (AUTO) 0.1 % (0.0-2.0); EOSINOPHILS % (AUTO) 0.2 % (0.0-7.0); HEMATOCRIT 38.8 % (36.7-47.1); HEMOGLOBIN 12.9 g/dL (12.5-16.3); LYMPHOCYTES # (AUTO) 0.6 K/uL (20.0-40.0); LYMPHOCYTES % (AUTO) 4.1 % (20.5-51.5); MEAN CORPUSCULAR HEMOGLOBIN 31.6 uug (23.8-33.4); MEAN CORPUSCULAR HGB CONC 33 g/dL (32.5-36.3); MEAN CORPUSCULAR VOLUME 95.1 fL (73.0-96.2); MONOCYTES # (AUTO) 0.6 K/uL (2.0-10.0); NEUTROPHILS # (AUTO) 13.1 K/uL (1.8-8.9); NEUTROPHILS % (AUTO) 91.6 % (38.5-71.5); PLATELET COUNT (AUTO) 84 K/uL (152-348); RED BLOOD CELL COUNT(AUTO) 4.08 MIL/uL (4.06-5.63); WHITE BLOOD COUNT (AUTO) 14.3 K/uL (3.6-10.2)
[2020-09-09 07:27] LABS: POTASSIUM 5.3 mmol/L (3.5-5.1); TOTAL PROTEIN, SERUM 5.1 g/dL (6.4-8.2)
[2020-09-09 07:30] LABS: CREATININE 8.6 mg/dL (0.6-1.3)
--- NOTE | 2020-09-09 07:30 | NUR ---
Received patient awake, alert and oriented times 4. No sign of distress noted at this time. Reinforced the use of the incentive spirometer. Emptied 100 cc output for JULIANE drain. Safety precautions in place. Will continue to monitor.
--- NOTE | 2020-09-09 11:00 | NUR ---
Got patient up out of bed and went for a walk around the unit. Patient tolerated well without oxygen. Took O2 sat and patient was saturating at 97%. Left O2 off. Will continue to monitor.
[2020-09-09] MEDS: AMLODIPINE 5 MG TABLET PO SCH (11:22)
[2020-09-09 12:11] VITALS: BP 155/86
[2020-09-09] MEDS ORDERED: SODIUM POLYSTYRENE SULFONATE 15 G/60 ML LIQUID UDC PO ONE (14:45)
[2020-09-09 16:35] VITALS: BP 146/78
--- NOTE | 2020-09-09 19:03 | NUR ---
Patient is resting in bed. No sign of distress noted. All medications given as ordered. Total output of 225 of serosanguineous output on my shift. Safety precautions in place with call light and belongings within reach. Will endorse to oncoming nurse.
[2020-09-09 20:22] VITALS: BP 146/72
[2020-09-09 22:55] LABS: EOSINOPHILS % (MANUAL) 1 % (0-8); LYMPHOCYTES % (MANUAL) 9 % (20-40); MONOCYTES % (MANUAL) 3 % (2-10); NEUTROPHILS % (MANUAL) 87 % (42-75)
[2020-09-10 04:06] VITALS: BP 144/83
[2020-09-10] MEDS: IV NS 1000 ML 1,000 ML IV PRN ×3 (04:21→21:12)
[2020-09-10] MEDS: MEROPENEM 500 MG in IV NORMAL SALINE 50 ML IV SCH (05:09)
[2020-09-10] MEDS: PANTOPRAZOLE SODIUM 40 MG TABLET.DR PO SCH (06:09)
[2020-09-10] MEDS: AMLODIPINE 5 MG TABLET PO SCH (08:02)
[2020-09-10 10:27] LABS: BASOPHILS % (AUTO) 0.2 % (0.0-2.0); EOSINOPHILS # (AUTO) 0.2 K/uL (0.0-0.7); EOSINOPHILS % (AUTO) 1.5 % (0.0-7.0); HEMATOCRIT 34.1 % (36.7-47.1); HEMOGLOBIN 11.7 g/dL (12.5-16.3); LYMPHOCYTES % (AUTO) 8.9 % (20.5-51.5); MEAN CORPUSCULAR HEMOGLOBIN 32.4 uug (23.8-33.4); MEAN CORPUSCULAR HGB CONC 34 g/dL (32.5-36.3); MEAN CORPUSCULAR VOLUME 94.2 fL (73.0-96.2); MONOCYTES # (AUTO) 0.7 K/uL (2.0-10.0); MONOCYTES % (AUTO) 6.1 % (0.0-11.0); NEUTROPHILS % (AUTO) 83.3 % (38.5-71.5); PLATELET COUNT (AUTO) 103 K/uL (152-348); RED BLOOD CELL COUNT(AUTO) 3.62 MIL/uL (4.06-5.63); WHITE BLOOD COUNT (AUTO) 10.8 K/uL (3.6-10.2)
[2020-09-10 10:40] LABS: BILIRUBIN,TOTAL 0.8 mg/dL (0.2-1.0); POTASSIUM 4.7 mmol/L (3.5-5.1); TOTAL PROTEIN, SERUM 4.8 g/dL (6.4-8.2)
[2020-09-10 10:47] LABS: CREATININE 7.8 mg/dL (0.6-1.3)
[2020-09-10 12:00] VITALS: BP 156/82
[2020-09-10 16:00] VITALS: BP 152/81
[2020-09-10 16:18] LABS: *ANTI-SCLERODERMA-70 AB <0.2 AI (0.0-0.9); *SJOGREN'S ANTI-SS-A <0.2 AI (0.0-0.9); *SJOGREN'S ANTI-SS-B <0.2 AI (0.0-0.9); *SMITH ANTIBODIES <0.2 AI (0.0-0.9); ANTI-DNA(DS) AB, QN <1 IU/mL (0-9)
[2020-09-10 20:00] VITALS: BP 127/82
--- NOTE | 2020-09-10 20:00 | NUR ---
NSG: RECEIVED PATIENT LYING IN HIS BED, PLEASANT UPON APPROACH. NO SOB AT THIS TIME. MATHIS CATH TO GRAVITY DRAINING YELLOW URINE.REMAIN ON IVF WITH NO S/S OF INFILTRATION ON SITE. PATIENT DENIES PAIN OR DISCOMFORTS AT THIS TIME. RESTING IN BED COMFORTABLY.
[2020-09-10] MEDS: CEFTRIAXONE 1 G in IV DEXTROSE 5% 50 ML IV SCH (21:22)
[2020-09-11] VITALS (7 sets, daily range): BP systolic 150–169; BP diastolic 77–91
--- NOTE | 2020-09-11 | NUR ---
nsg: Patient is resting in bed. no s/s of pain or distress noted. Total output of 25cc of serosanguineous @ midnight. call light and belongings within reach. continue plan of care.
--- NOTE | 2020-09-11 06:07 | NUR ---
NSG: Remain confused through the night. slept well. continue on both wrist with soft restraint with mittens due to patient pulling iv lines and f/c. continue monitor for safety. Addendum: 09/11/20 at 0611 by TIAN LARES LVN wrong patient charting.
--- NOTE | 2020-09-11 06:12 | NUR ---
NSG: Remain calm and cooperative. slept well. no s/s of pain or discomfort noted. call light w/in reach.
[2020-09-11] MEDS: PANTOPRAZOLE SODIUM 40 MG TABLET.DR PO SCH (06:14)
[2020-09-11 06:29] LABS: BASOPHILS % (AUTO) 0.3 % (0.0-2.0); EOSINOPHILS # (AUTO) 0.1 K/uL (0.0-0.7); EOSINOPHILS % (AUTO) 1.4 % (0.0-7.0); HEMATOCRIT 32.5 % (36.7-47.1); HEMOGLOBIN 11.2 g/dL (12.5-16.3); LYMPHOCYTES # (AUTO) 1.1 K/uL (20.0-40.0); LYMPHOCYTES % (AUTO) 11.9 % (20.5-51.5); MEAN CORPUSCULAR HEMOGLOBIN 32.2 uug (23.8-33.4); MEAN CORPUSCULAR HGB CONC 34 g/dL (32.5-36.3); MEAN CORPUSCULAR VOLUME 93.9 fL (73.0-96.2); MONOCYTES # (AUTO) 0.5 K/uL (2.0-10.0); MONOCYTES % (AUTO) 5.8 % (0.0-11.0); NEUTROPHILS # (AUTO) 7.5 K/uL (1.8-8.9); NEUTROPHILS % (AUTO) 80.6 % (38.5-71.5); PLATELET COUNT (AUTO) 112 K/uL (152-348); RED BLOOD CELL COUNT(AUTO) 3.46 MIL/uL (4.06-5.63); WHITE BLOOD COUNT (AUTO) 9.3 K/uL (3.6-10.2)
[2020-09-11 06:32] LABS: BILIRUBIN,TOTAL 0.8 mg/dL (0.2-1.0); CREATININE 7.3 mg/dL (0.6-1.3); POTASSIUM 4.7 mmol/L (3.5-5.1); TOTAL PROTEIN, SERUM 4.7 g/dL (6.4-8.2)
--- NOTE | 2020-09-11 06:37 | NUR ---
patient is on tele monitor,which showing av pacing 85%. sera chen sr. Addendum: 09/11/20 at 0651 by TIAN LARES LVN wrong patient charting.
[2020-09-11] MEDS: IV NS 1000 ML 1,000 ML IV PRN ×2 (06:42→19:00)
--- NOTE | 2020-09-11 06:54 | NUR ---
ASSISTED TO USE BATHROOM PATIENT HAD MEDIUM SOFT BM.
[2020-09-11] MEDS: AMLODIPINE 5 MG TABLET PO SCH (08:29)
--- NOTE | 2020-09-11 09:30 | NUR ---
pt accidently pulled out the rossana drainage dr larsen notified no bleeding and any drainage noted on the side
[2020-09-11] MEDS: CLONIDINE HCL 0.1 MG TABLET PO PRN (17:11)
--- NOTE | 2020-09-11 19:49 | NUR ---
Received patient from AM nurse. Safety measures in place, patient in bed. Will monitor and assess.
[2020-09-11] MEDS: CEFTRIAXONE 1 G in IV DEXTROSE 5% 50 ML IV SCH ×2 (20:00→20:07)
[2020-09-12] MEDS: IV NS 1000 ML 1,000 ML IV PRN ×2 (04:24→21:00)
[2020-09-12 05:45] VITALS: BP 138/74
[2020-09-12] MEDS: PANTOPRAZOLE SODIUM 40 MG TABLET.DR PO SCH (08:04)
[2020-09-12] MEDS: AMLODIPINE 5 MG TABLET PO SCH (09:32)
[2020-09-12 09:57] VITALS: BP 145/75
[2020-09-12 12:48] VITALS: BP 155/70
[2020-09-12 14:04] LABS: BASOPHILS % (AUTO) 0.4 % (0.0-2.0); EOSINOPHILS # (AUTO) 0.1 K/uL (0.0-0.7); EOSINOPHILS % (AUTO) 1.1 % (0.0-7.0); HEMATOCRIT 33.7 % (36.7-47.1); HEMOGLOBIN 11.2 g/dL (12.5-16.3); LYMPHOCYTES # (AUTO) 0.9 K/uL (20.0-40.0); LYMPHOCYTES % (AUTO) 9.1 % (20.5-51.5); MEAN CORPUSCULAR HEMOGLOBIN 31.2 uug (23.8-33.4); MEAN CORPUSCULAR HGB CONC 33 g/dL (32.5-36.3); MEAN CORPUSCULAR VOLUME 93.8 fL (73.0-96.2); MONOCYTES # (AUTO) 0.4 K/uL (2.0-10.0); MONOCYTES % (AUTO) 4.4 % (0.0-11.0); PLATELET COUNT (AUTO) 140 K/uL (152-348); WHITE BLOOD COUNT (AUTO) 9.4 K/uL (3.6-10.2)
[2020-09-12 14:05] LABS: CREATININE 6.5 mg/dL (0.6-1.3); POTASSIUM 5.1 mmol/L (3.5-5.1)
[2020-09-12 15:53] VITALS: BP 155/76
[2020-09-12 20:22] VITALS: BP 153/82
[2020-09-12] MEDS: CEFTRIAXONE 1 G in IV DEXTROSE 5% 50 ML IV SCH (21:10)
[2020-09-13 05:05] VITALS: BP 151/84
[2020-09-13] MEDS: PANTOPRAZOLE SODIUM 40 MG TABLET.DR PO SCH (06:16)
--- NOTE | 2020-09-13 06:29 | NUR ---
Pt rested well in between care; no acute distress; denies any pain; continue to monitor.
[2020-09-13] MEDS: AMLODIPINE 5 MG TABLET PO SCH (08:36)
[2020-09-13 12:00] VITALS: BP 147/83
[2020-09-13] MEDS: CLONIDINE HCL 0.1 MG TABLET PO PRN (13:49)
[2020-09-13] MEDS ORDERED: LEVO500T90 PO (14:49)
[2020-09-13 16:00] VITALS: BP 138/64
[2020-09-13] MEDS ORDERED: NEOSTIGMINE METHYLSULFATE 10 MG/10 ML VIAL IM ONE (18:59)
[2020-09-13] MEDS ORDERED: ETOMIDATE 20 MG/10 ML VIAL IV ONE (18:59)
[2020-09-13] MEDS ORDERED: DEXAMETHASONE SOD PHOSPHATE 4 MG INJ IV ONE (18:59)
[2020-09-13] MEDS ORDERED: KETOROLAC TROMETHAMINE 30 MG INJ IM ONE ×2 (18:59)
[2020-09-13] MEDS ORDERED: GLYCOPYRROLATE 0.2 MG/ML VIAL IJ ONE (18:59)
[2020-09-13] MEDS ORDERED: ONDANSETRON 4 MG/2 ML VIAL IV ONE (18:59)
[2020-09-13] MEDS ORDERED: PROPOFOL 200 MG/20 ML BOTTLE IV ONE (18:59)
--- NOTE | 2020-09-13 19:00 | NUR ---
Discharge instructions given to patient and nikhil. Home health set up by [facility]. PT and verbalized understanding. Pt is in no acute distress upon d/c. Pt is to f/u vaccine with primary doctor. PT to f/u with PMD, surgeon DR larsen, and nephrology dr james. within 1 week.
== END 2020-09-13 19:00 | disposition home health service (06) | DRG 853 ==
LOC: ER 19:39 → DS 09-04 18:13 → CCU 09-04 22:07 → TELE3 09-06 20:53 → MEDSURG3 09-08 11:15
PROVIDERS: ADMIT Student in an Organized Health Care Education/Training Program; ATTEND Nurse Practitioner Acute Care
PROC: 0DJ08ZZ Inspection of Upper Intestinal Tract, Via Natural or Artificial Opening Endoscopic (ICD-10-PCS; principal; 2020-09-05)
PROC: 0FT44ZZ Resection of Gallbladder, Percutaneous Endoscopic Approach (ICD-10-PCS; 2020-09-08)
DX: A41.51 Sepsis due to Escherichia coli [E. coli] (principal); R65.21 Severe sepsis with septic shock; J69.0 Pneumonitis due to inhalation of food and vomit; N17.0 Acute kidney failure with tubular necrosis; J96.01 Acute respiratory failure with hypoxia; K83.09 Other cholangitis; K82.A2 Perforation of gallbladder in cholecystitis; E44.0 Moderate protein-calorie malnutrition; K81.0 Acute cholecystitis; J98.11 Atelectasis; K82.A1 Gangrene of gallbladder in cholecystitis; D64.9 Anemia, unspecified; D69.6 Thrombocytopenia, unspecified; E86.0 Dehydration; E87.6 Hypokalemia; I10 Essential (primary) hypertension; Z20.828 Contact with and (suspected) exposure to other viral communicable diseases; R74.01 Elevation of levels of liver transaminase levels; Z68.26 Body mass index [BMI] 26.0-26.9, adult; R55 Syncope and collapse; Z53.8 Procedure and treatment not carried out for other reasons; N40.0 Benign prostatic hyperplasia without lower urinary tract symptoms; K66.0 Peritoneal adhesions (postprocedural) (postinfection)
CPT/HCPCS: 36415; 36600; 70030-TC; 70450; 71045; 74181; 76770; 78445; 83520; 83605; 83615; 83690; 83735; 84100; 84156; 84300; 84443; 85025; 85651; 85730; 86038; 86140; 86160; 86256; 86706; 86803; 87040; 87070; 87075; 87077; 87086; 87340; 87400; 93005; 93307; A4617; A9150; A9537; G0378; J0330; J0696; J1100; J1650; J1885; J2185; J2405; J2543; J2765; J3010; J3370; J3490; J7030; J7050; J7060; J7120; L8699; Q9967; U0003